=== PATIENT | female | born 1975 | race Caucasian/White ===

== ENCOUNTER → 2024-05-26 | Outpatient (REF) | payer OTHER ==
[2024-05-26 13:54] LABS: THYROID STIMULATING HORMONE 23.699 uIU/ML (0.55-4.78)
[2024-05-26 13:55] LABS: ALBUMIN 3.3 G/DL (3.2-5.2); ALKALINE PHOSPHATASE 101 U/L (46-116); ALT/SGPT 37 U/L (7.0-40); AST/SGOT 28 U/L (<34); BILIRUBIN,TOTAL 0.4 MG/DL (0.3-1.2); BLOOD UREA NITROGEN 19 MG/DL (9-23); CALCIUM LEVEL 8.6 MG/DL (8.5-10.1); CARBON DIOXIDE LEVEL 28 MMOL/L (20-31); CHLORIDE LEVEL 109 MMOL/L (98-107); CHOLESTEROL LEVEL 175 MG/DL (<200); CHOLESTEROL RISK RATIO 2.53 (<5); CREATININE FOR GFR 0.82 MG/DL (0.55-1.30); GLOMERULAR FILTRATION RATE > 60.0 (>58); GLUCOSE, FASTING 84 MG/DL (60-100); LDL CHOLESTEROL 83.4 MG/DL (<100); POTASSIUM SERUM 4.6 MMOL/L (3.5-5.1); SODIUM LEVEL 141 MMOL/L (136-145); TOTAL 25(OH) VITAMIN D 31.3 NG/ML (20.0-100.0); TOTAL PROTEIN 6.1 G/DL (5.7-8.2); TRIGLYCERIDES LEVEL 113 MG/DL (<150)
[2024-05-26 14:16] LABS: HEMOGLOBIN A1c 4.9 % (4.0-6.0)
== END ==
LOC: M LAB REF 12:44
PROVIDERS: ATTEND Physician Assistant
DX: E66.9 Obesity, unspecified (principal); E55.9 Vitamin D deficiency, unspecified

== ENCOUNTER 2024-06-07 13:38 | Emergency (ER) | payer OTHER ==
[~2024-06-07] VITALS: Ht 170.2 cm; Wt 97.0 kg
[2024-06-07 17:13] LABS: LIPASE 37 U/L (12-53)
[2024-06-07] MEDS: ACETAMINOPHEN *IV* 1,000 MG in IV 1 EA IV ONE (17:13)
[2024-06-07 17:16] LABS: ALBUMIN 3.6 G/DL (3.2-5.2); ALKALINE PHOSPHATASE 135 U/L (46-116); ALT/SGPT 35 U/L (7.0-40); AST/SGOT 26 U/L (<34); BASO # 0.1 10^3/uL (0.0-0.2); BASO % 0.5 % (0.0-1.0); BILIRUBIN,DIRECT 0.1 MG/DL (<0.4); BILIRUBIN,TOTAL 0.4 MG/DL (0.3-1.2); BLOOD UREA NITROGEN 14 MG/DL (9-23); CALCIUM LEVEL 8.4 MG/DL (8.5-10.1); CARBON DIOXIDE LEVEL 27 MMOL/L (20-31); CHLORIDE LEVEL 106 MMOL/L (98-107); CREATININE FOR GFR 0.81 MG/DL (0.55-1.30); EOS # 0.4 10^3/uL (0.0-0.5); EOS % 4.3 % (0.0-3.0); GLOMERULAR FILTRATION RATE > 60.0 (>58); GLUCOSE, FASTING 89 MG/DL (60-100); HEMATOCRIT 44.6 % (36.0-47.0); HEMOGLOBIN 14.7 g/dl (12.0-15.5); LYMPH # 2.7 10^3/uL (1.5-5.0); MEAN CORPUSCULAR HEMOGLOBIN 30.8 pg (27.0-33.0); MEAN CORPUSCULAR VOLUME 93.5 fl (80.0-96.0); MONO # 0.5 10^3/uL (0.0-0.8); MONO % 5.1 % (2.0-8.0); NEUTROPHILS # 5.4 10^3/uL (1.5-8.5); NEUTROPHILS % 59.7 % (36.0-66.0); PLATELET COUNT, AUTOMATED 358 10^3/uL (150-450); RED BLOOD COUNT 4.77 10^6/uL (4.00-5.40); SODIUM LEVEL 140 MMOL/L (136-145); TOTAL PROTEIN 6.8 G/DL (5.7-8.2); WHITE BLOOD COUNT 9.1 10^3/uL (4.0-10.0)
[2024-06-07 17:17] LABS: CPK CREATINE PHOSPHOKINASE 104 U/L (34-145); MB/CK RELATIVE INDEX 0.96 (< OR =4)
[2024-06-07] MEDS ORDERED: ISOVUE-370 76% 100ML VIAL As Ordered ONE (17:29)
[2024-06-07] MEDS ORDERED: BENZ200C70 PO (19:05)
[2024-06-07 19:17] VITALS: BP 116/64; TEMP 96.7; O2SAT 97
== END 2024-06-07 19:18 | disposition home or self-care (01) ==
LOC: M ED 13:38
DX: K46.9 Unspecified abdominal hernia without obstruction or gangrene (principal); K76.0 Fatty (change of) liver, not elsewhere classified; K59.00 Constipation, unspecified; R05.9 Cough, unspecified; Z98.84 Bariatric surgery status
CPT/HCPCS: 71046; 74177; 80048; 80076; 81001; 82550; 82553; 83690; 84484; 85025; 87088; 87186; 87486; 87581; 87633; 87798; 93005; 96374; 99284; J0131; Q9967

== ENCOUNTER → 2024-07-27 | Outpatient (REF) | payer OTHER ==
[~2024-07-27] MED LIST: BENZ200C70 PO
== END ==
LOC: M LAB REF 16:16
PROVIDERS: ATTEND Physician Assistant
DX: R30.0 Dysuria (principal)

== ENCOUNTER → 2024-09-01 | Outpatient (CLI) | payer OTHER | LOC: M RAD 10:27 | PROVIDERS: ATTEND Physician Assistant | DX: R05.9 Cough, unspecified (principal) ==

== ENCOUNTER → 2024-09-01 | Outpatient (CLI) | payer OTHER ==
[2024-09-01 12:18] LABS: BASO # 0.1 10^3/uL (0.0-0.2); BASO % 0.7 % (0.0-1.0); EOS # 0.5 10^3/uL (0.0-0.5); EOS % 6.3 % (0.0-3.0); HEMATOCRIT 42.7 % (36.0-47.0); LYMPH # 2.2 10^3/uL (1.5-5.0); LYMPH % 29.9 % (24.0-44.0); MEAN CORPUSCULAR HEMOGLOBIN 30.9 pg (27.0-33.0); MEAN CORPUSCULAR HGB CONC 32.8 g/dl (32.0-36.5); MEAN CORPUSCULAR VOLUME 94.3 fl (80.0-96.0); MONO # 0.4 10^3/uL (0.0-0.8); NEUTROPHILS # 4.1 10^3/uL (1.5-8.5); NEUTROPHILS % 56.8 % (36.0-66.0); PLATELET COUNT, AUTOMATED 293 10^3/uL (150-450); RED BLOOD COUNT 4.53 10^6/uL (4.00-5.40); WHITE BLOOD COUNT 7.3 10^3/uL (4.0-10.0)
[2024-09-01 12:32] LABS: ERYTHROCYTE SEDIMENTATION RATE 14 mm/hr (0-20)
[2024-09-01 12:44] LABS: THYROID STIMULATING HORMONE 6.926 uIU/ML (0.55-4.78); TOTAL 25(OH) VITAMIN D 32.5 NG/ML (20.0-100.0)
[2024-09-01 12:45] LABS: ALBUMIN 3.1 G/DL (3.2-5.2); ALKALINE PHOSPHATASE 113 U/L (46-116); ALT/SGPT 26 U/L (7.0-40); AST/SGOT 22 U/L (<34); BILIRUBIN,TOTAL 0.4 MG/DL (0.3-1.2); BLOOD UREA NITROGEN 11 MG/DL (9-23); CALCIUM LEVEL 8.4 MG/DL (8.5-10.1); CARBON DIOXIDE LEVEL 26 MMOL/L (20-31); CHLORIDE LEVEL 113 MMOL/L (98-107); CREATININE FOR GFR 0.94 MG/DL (0.55-1.30); GLOMERULAR FILTRATION RATE > 60.0 (>58); GLUCOSE, FASTING 89 MG/DL (60-100); POTASSIUM SERUM 4.5 MMOL/L (3.5-5.1); SODIUM LEVEL 140 MMOL/L (136-145); TOTAL PROTEIN 6.3 G/DL (5.7-8.2)
[2024-09-01 12:46] LABS: RHEUMATOID FACTOR QUANT < 3.5 IU/ML (<14); VITAMIN B12 LEVEL 724 PG/ML (211-911)
[2024-09-01 12:49] LABS: FOLATE 13.2 NG/ML (>5.4)
[2024-09-02 15:42] LABS: ANA SCREEN, IFA NEGATIVE (NEGATIVE)
== END ==
LOC: M LAB 10:30
PROVIDERS: ATTEND Student in an Organized Health Care Education/Training Program
DX: R51.9 Headache, unspecified (principal)

== ENCOUNTER → 2024-10-05 | Outpatient (CLI) | payer OTHER | LOC: M LAB 15:57 | PROVIDERS: ATTEND Physician Assistant | DX: M48.061 Spinal stenosis, lumbar region without neurogenic claudication (principal); M47.816 Spondylosis without myelopathy or radiculopathy, lumbar region; M47.817 Spondylosis without myelopathy or radiculopathy, lumbosacral region ==

== ENCOUNTER → 2024-11-19 | Outpatient (REF) | payer OTHER ==
[2024-11-19 13:42] LABS: HCG, SERUM QUALITATIVE NEGATIVE (NEGATIVE)
== END ==
LOC: M LAB REF 11:46
PROVIDERS: ATTEND Physician Assistant
DX: Z31.9 Encounter for procreative management, unspecified (principal)

== ENCOUNTER → 2025-02-28 | Outpatient (REF) | payer OTHER ==
[2025-02-28 18:43] LABS: BASO # 0.1 10^3/uL (0.0-0.2); BASO % 0.6 % (0.0-1.0); EOS # 0.4 10^3/uL (0.0-0.5); EOS % 5.3 % (0.0-3.0); HEMATOCRIT 45.2 % (36.0-47.0); HEMOGLOBIN 14.7 g/dl (12.0-15.5); LYMPH # 2.2 10^3/uL (1.5-5.0); LYMPH % 28.2 % (24.0-44.0); MEAN CORPUSCULAR HEMOGLOBIN 31.7 pg (27.0-33.0); MEAN CORPUSCULAR HGB CONC 32.5 g/dl (32.0-36.5); MEAN CORPUSCULAR VOLUME 97.4 fl (80.0-96.0); MONO # 0.3 10^3/uL (0.0-0.8); MONO % 4.4 % (2.0-8.0); NEUTROPHILS # 4.7 10^3/uL (1.5-8.5); NEUTROPHILS % 61.2 % (36.0-66.0); PLATELET COUNT, AUTOMATED 305 10^3/uL (150-450); RED BLOOD COUNT 4.64 10^6/uL (4.00-5.40); WHITE BLOOD COUNT 7.7 10^3/uL (4.0-10.0)
[2025-02-28 18:53] LABS: HEMOGLOBIN A1c 4.8 % (4.0-6.0)
[2025-02-28 19:09] LABS: ALBUMIN 3.5 G/DL (3.2-5.2); BILIRUBIN,TOTAL 0.3 MG/DL (0.3-1.2); CALCIUM LEVEL 8.9 MG/DL (8.5-10.1); CHOLESTEROL RISK RATIO 2.35 (<5); CREATININE FOR GFR 0.88 MG/DL (0.55-1.30); HDL CHOLESTEROL 70.4 MG/DL (>40); LDL CHOLESTEROL 73.4 MG/DL (<100); MAGNESIUM LEVEL 2.3 MG/DL (1.8-2.4); NON-HDL-C 95.6 MG/DL; PERCENT SATURATION 16.7 % (13.2-45.0); POTASSIUM SERUM 4.8 MMOL/L (3.5-5.1); TOTAL PROTEIN 6.7 G/DL (5.7-8.2)
[2025-02-28 19:11] LABS: TOTAL 25(OH) VITAMIN D 12.4 NG/ML (20.0-100.0)
[2025-02-28 19:12] LABS: THYROID STIMULATING HORMONE 0.092 uIU/ML (0.55-4.78)
== END ==
LOC: M LAB REF 17:28
PROVIDERS: ATTEND Physician Assistant
DX: R53.83 Other fatigue (principal); E55.9 Vitamin D deficiency, unspecified; D64.9 Anemia, unspecified; E66.9 Obesity, unspecified

== ENCOUNTER → 2025-03-26 | Outpatient (CLI) | payer OTHER | LOC: M RAD 12-23 12:12 | PROVIDERS: ATTEND Pain Medicine Interventional Pain Medicine | DX: Z53.9 Procedure and treatment not carried out, unspecified reason (principal) ==

== ENCOUNTER 2025-06-10 10:07 | Emergency (ER) | payer OTHER ==
[~2025-06-10] VITALS: Ht 170.2 cm; Wt 108.5 kg
[~2025-06-10 10:07] MED LIST changes: +ALBU8.5H; +AMOX875T2 PO; +ARIP1TAB6; +ATOG60TA; +BACL10TA2; +BUSP10TA; +CLON1TAB8; +DESV100T3; +GABA-1490; +HYDR12.510; +LEVO125T4; +MECL-86; +PRAV40TA85; +PRAZ1CAP; +ROPI1TAB73; +VITA200032; +ZONI100C67
[2025-06-10] MEDS: KETOROLAC 30 MG/ML 1 ML VIAL IM ONE (13:21)
[2025-06-10 14:28] VITALS: BP 112/63; TEMP 97.4; O2SAT 98
== END 2025-06-10 14:34 | disposition home or self-care (01) ==
LOC: M ED 10:07
DX: M25.521 Pain in right elbow (principal); M25.561 Pain in right knee; V09.29XA Pedestrian injured in traffic accident involving other motor vehicles, initial encounter; J44.9 Chronic obstructive pulmonary disease, unspecified; F17.200 Nicotine dependence, unspecified, uncomplicated; F12.10 Cannabis abuse, uncomplicated; Z98.84 Bariatric surgery status; Z91.030 Bee allergy status; Z91.09 Other allergy status, other than to drugs and biological substances; Z79.52 Long term (current) use of systemic steroids; Z79.2 Long term (current) use of antibiotics; Z79.899 Other long term (current) drug therapy; Y99.9 Unspecified external cause status; Y93.01 Activity, walking, marching and hiking; Y92.410 Unspecified street and highway as the place of occurrence of the external cause
CPT/HCPCS: 73080; 73110; 73502; 96372; 99284; J1885

== ENCOUNTER 2025-06-11 01:32 | Emergency (ER) | payer OTHER ==
[~2025-06-11] VITALS: Ht 170.2 cm; Wt 108.5 kg
[2025-06-11] MEDS: diphenhydrAMINE 50 MG/ML VIAL IV STA (07:38)
[2025-06-11] MEDS: KETOROLAC 30 MG/ML 1 ML VIAL IV ONE (08:18)
[2025-06-11 11:06] VITALS: TEMP 96.9
[2025-06-11 11:30] VITALS: BP 111/65; O2SAT 99
== END 2025-06-11 11:44 | disposition home or self-care (01) ==
LOC: EDBD 01:32 → M ED 01:32
DX: S13.4XXA Sprain of ligaments of cervical spine, initial encounter (principal); G43.909 Migraine, unspecified, not intractable, without status migrainosus; V09.29XA Pedestrian injured in traffic accident involving other motor vehicles, initial encounter; Y92.410 Unspecified street and highway as the place of occurrence of the external cause; Y93.01 Activity, walking, marching and hiking; Y99.9 Unspecified external cause status; Z91.030 Bee allergy status; Z91.048 Other nonmedicinal substance allergy status; Z79.52 Long term (current) use of systemic steroids; Z79.899 Other long term (current) drug therapy; Z79.2 Long term (current) use of antibiotics
CPT/HCPCS: 70450; 72125; 96374; 96375; 99284; J1200; J1885; J2765

== ENCOUNTER → 2025-06-22 | Outpatient (CLI) | payer OTHER | LOC: M PLAIMG 14:58 | PROVIDERS: ATTEND Podiatrist Foot & Ankle Surgery | DX: S93.402A Sprain of unspecified ligament of left ankle, initial encounter (principal); M94.272 Chondromalacia, left ankle and joints of left foot; M19.072 Primary osteoarthritis, left ankle and foot; M65.872 Other synovitis and tenosynovitis, left ankle and foot ==

== ENCOUNTER 2025-07-20 07:26 | Emergency (ER) | payer OTHER ==
[~2025-07-20] VITALS: Ht 170.2 cm; Wt 109.7 kg
[2025-07-20 08:20] VITALS: TEMP 96.7
[2025-07-20] MEDS ORDERED: AMOX875T2 PO (08:38)
[2025-07-20 08:40] VITALS: BP 108/58
[2025-07-20 08:41] VITALS: O2SAT 93
== END 2025-07-20 08:55 | disposition home or self-care (01) ==
LOC: M ED 07:26
DX: K08.89 Other specified disorders of teeth and supporting structures (principal); M77.12 Lateral epicondylitis, left elbow; M25.522 Pain in left elbow; E03.9 Hypothyroidism, unspecified; Z98.84 Bariatric surgery status; Z79.52 Long term (current) use of systemic steroids; Z79.2 Long term (current) use of antibiotics; Z79.899 Other long term (current) drug therapy

== ENCOUNTER → 2025-09-30 | Outpatient (CLI) | payer OTHER | LOC: M PLARAD 10:49 | PROVIDERS: ATTEND Pain Medicine Interventional Pain Medicine | DX: M48.061 Spinal stenosis, lumbar region without neurogenic claudication (principal); M47.816 Spondylosis without myelopathy or radiculopathy, lumbar region ==

== ENCOUNTER 2025-10-28 17:13 | Emergency (ER) | payer OTHER ==
[~2025-10-28] VITALS: Ht 165.1 cm; Wt 118.0 kg
[2025-10-28 18:15] LABS: HCG, SERUM QUALITATIVE NEGATIVE (NEGATIVE)
[2025-10-28 21:18] VITALS: BP 118/85; TEMP 97.4
[2025-10-28 21:19] VITALS: O2SAT 97
[2025-10-28] MEDS: traMADol 50 MG TAB PO ONE (21:19)
== END 2025-10-28 21:34 | disposition home or self-care (01) ==
LOC: EDUNIT# 17:13 → EDBD 17:13 → M ED 17:13
DX: S93.401A Sprain of unspecified ligament of right ankle, initial encounter (principal); X50.0XXA Overexertion from strenuous movement or load, initial encounter; J44.9 Chronic obstructive pulmonary disease, unspecified; F17.200 Nicotine dependence, unspecified, uncomplicated; Z98.84 Bariatric surgery status; Y92.009 Unspecified place in unspecified non-institutional (private) residence as the place of occurrence of the external cause; Y93.89 Activity, other specified; Y99.9 Unspecified external cause status; Z91.030 Bee allergy status; Z91.09 Other allergy status, other than to drugs and biological substances; Z79.2 Long term (current) use of antibiotics; Z79.52 Long term (current) use of systemic steroids; Z79.899 Other long term (current) drug therapy